=== PATIENT | male | born 1965 | race Caucasian/White ===

== ENCOUNTER 2016-09-17 17:18 | Emergency (ER) | payer OTHER ==
[2016-09-17 17:30] VITALS: BP 141/84; PULSE 88; TEMP 97.8; BMI 36.6
[2016-09-17] MEDS ORDERED: KETOROLAC TROMETHAMINE 60 MG/2 ML VIAL IM ONE (17:49)
[2016-09-17] MEDS ORDERED: KETOROLAC TROMETHAMINE 60 MG/2 ML VIAL ONE (17:52)
--- NOTE | 2016-09-17 18:04 | PDOC ---
History of Present Illness - General Chief Complaint: Back Pain Stated Complaint: BACK PAIN Time Seen by Provider: 09/17/16 17:33 History Source: Patient Exam Limitations: No Limitations - History of Present Illness Initial Comments: 09/17/16 17:58 50 yr male with c/o low back spasm started this AM . Pt states he was painting yesterday bent down. Pt has chronic pain. Pt denies urine or bowel dysfunction, denies saddle anesthesia. Occurred: reports: this morning Severity: reports: moderate Pain Location: reports: back Loss of Consciousness: no loss of consciousness Associated Symptoms (Fall): denies symptoms Past History - Past Medical History Allergies/Adverse Reactions: Allergies Allergy/AdvReac Type Severity Reaction Status Date / Time No Known Allergies Allergy Verified 09/17/16 17:26 Home Medications: Ambulatory Orders Codeine/Butalbital/ASA/Caffein [Fiorinal with Codeine #3 Cap] 1 each PO DAILY Cyclobenzaprine HCl [Flexeril 10 mg] 5 mg PO TID PRN #15 tablet 09/17/16 Naproxen Sodium [Naproxen Sodium Cr] 500 mg PO DAILY 09/17/16 Naproxen [Naprosyn -] 500 mg PO BID #14 tablet 09/17/16 Omeprazole Magnesium [Prilosec] 20 mg PO DAILY 09/17/16 Other medical history: back problems - Psycho/Social/Smoking Cessation Hx Anxiety: No Suicidal Ideation: No Smoking History: Never smoked Have you smoked in the past 12 months: No Information on smoking cessation initiated: No Hx Alcohol Use: No Drug/Substance Use Hx: No Substance Use Type: None Trauma Specific PMHX - Complaint Specific PMHX Arthritis: No Back Injury: Yes Neck Injury: Yes Review of Systems - Review of Systems Able to Perform ROS?: Yes Is the patient limited Icelandic proficient: No Constitutional: No: Symptoms Reported HEENTM: No: Symptoms Reported Respiratory: No: Symptoms reported Cardiac (ROS): No: Symptoms Reported ABD/GI: No: Symptoms Reported : No: Symptoms Reported Musculoskeletal: Yes: See HPI *Physical Exam - Vital Signs Last Vital Signs Temp Pulse Resp BP Pulse Ox 97.8 F 88 18 141/84 100 09/17/16 17:26 09/17/16 17:26 09/17/16 17:26 09/17/16 17:26 09/17/16 17:26 - Physical Exam General Appearance: Yes: Nourished, Appropriately Dressed HEENT: positive: EOMI, [place] Neck: negative: Tender Respiratory/Chest: positive: Lungs Clear, Normal Breath Sounds Cardiovascular: positive: Regular Rhythm, Regular Rate Musculoskeletal: positive: Normal Inspection, Decreased Range of Motion, Muscle Spasm. negative: CVA Tenderness, CVA Tenderness (R), CVA Tenderness (L), Vertebral Tenderness Extremity: positive: Normal Capillary Refill, Normal Inspection, Normal Range of Motion Integumentary: positive: Normal Color, Dry, Warm Neurologic: positive: Fully Oriented, Alert, Normal Mood/Affect, Normal Response , Motor Strength 07/15 ED Treatment Course - Medications Given in the ED: ED Medications Discontinued Medications Generic Name Dose Route Start Last Admin Trade Name Freq PRN Reason Stop Dose Admin Ketorolac Tromethamine 60 mg 09/17/16 17:49 09/17/16 17:53 Toradol Injection - IM 09/17/16 17:50 60 mg ONCE ONE Administration Medical Decision Making - Medical Decision Making 09/17/16 18:01 cc: low back pain/spasm after painting, pt has chronic back pain, herniated discs, neck herniated discs will give toradol for pain will dc with flexeril for spasms as needed, naprosyn for pain follow up with your back doctor next week. pt ambulatory is able to get self dressed no diffucuclty. pt agrees with plan of care. all questions asked at discharge. 09/17/16 18:56 *DC/Admit/Observation/Transfer Diagnosis at time of Disposition: Back muscle spasm - Discharge Dispostion Disposition: HOME Condition at time of disposition: Good - Prescriptions Prescriptions: Cyclobenzaprine HCl [Flexeril 10 mg] 5 mg PO TID PRN #15 tablet PRN Reason: Muscle Spasms Naproxen [Naprosyn -] 500 mg PO BID #14 tablet - Referrals Referrals: Marek Dela Cruz MD [Primary Care Provider] - Bobo Seals MD [Staff Physician] - - Patient Instructions Additional Instructions: please follow with the orthopedist next week take the flexeril for muscle spasm as needed MAY MAKE YOU DROWSY OR SLEEPY DO NOT DRIVE OR DRINK ALCOHOL TAKE NAPROSYN FOR PAIN any diffucuclty urinating, having bowel movements or ay other severe pain return to the ER
== END 2016-09-17 18:14 | disposition home or self-care (01) ==
LOC: JERFT 17:18
PROC: 3E0233Z Introduction of Anti-inflammatory into Muscle, Percutaneous Approach (ICD-10-PCS; principal; 2016-09-17)
DX: M62.830 Muscle spasm of back (principal); X50.0XXA Overexertion from strenuous movement or load, initial encounter; Y93.E9 Activity, other interior property and clothing maintenance; Y92.038 Other place in apartment as the place of occurrence of the external cause
CPT/HCPCS: 99281-25

== ENCOUNTER 2017-12-31 07:17 | Emergency (ER) | payer OTHER ==
[2017-12-31 07:29] VITALS: BP 128/100; PULSE 93; TEMP 97.5; BMI 27.0
[2017-12-31] MEDS ORDERED: MECLIZINE HCL 25 MG TABLET (FP) PO ONE (07:41)
--- NOTE | 2017-12-31 07:41 | PDOC ---
History of Present Illness - General Chief Complaint: Lightheaded Stated Complaint: dizzy,ear congested Time Seen by Provider: 12/31/17 07:38 History Source: Patient Exam Limitations: No Limitations - History of Present Illness Initial Comments: 12/31/17 07:38 52 yo male here with c/o vertigo sensation. was recently treated for inner ear infection has had cold with runny nose, sinus congestion and ear fullness. follows with dr. tidwell. last evening started to have vertigo. lasted several minutes. was feeling unsteady at time. has since improved., but recurrs with movement and rolling over in bed. no n/v no change to vision. no weakness or change to speech. no f/c no other complaints. Past History - Past Medical History Allergies/Adverse Reactions: Allergies Allergy/AdvReac Type Severity Reaction Status Date / Time No Known Allergies Allergy Verified 09/17/16 17:26 Home Medications: Ambulatory Orders Codeine/Butalbital/ASA/Caffein [Fiorinal with Codeine #3 Cap] 1 each PO DAILY Cyclobenzaprine HCl [Flexeril 10 mg] 5 mg PO TID PRN #15 tablet 09/17/16 Naproxen [Naprosyn -] 500 mg PO BID #14 tablet 09/17/16 Omeprazole Magnesium [Prilosec] 20 mg PO DAILY 09/17/16 Amoxicillin/Potassium Clav [Augmentin 875-125 Tablet] 1 each PO BID #14 tablet 12/31/17 Fluticasone Prop 0.05% Nasal [Flonase -] 1 spray NS DAILY #1 bot 12/31/17 Meclizine HCl 25 mg PO QID PRN #20 tablet 12/31/17 Pseudoephedrine HCl 30 mg PO QID PRN #30 tablet MDD 4 12/31/17 Tramadol HCl 50 mg PO TID PRN 12/31/17 Tramadol HCl 50 mg PO TID PRN 12/31/17 COPD: No Other medical history: back,knee,neck pain - Suicide/Smoking/Psychosocial Hx Smoking History: Never smoked Have you smoked in the past 12 months: No Information on smoking cessation initiated: No Hx Alcohol Use: No Drug/Substance Use Hx: No Substance Use Type: None Review of Systems - Review of Systems Constitutional: No: Chills, Diaphoresis, Fever HEENTM: Yes: Nose Congestion Respiratory: No: Orthopnea, Shortness of Breath Musculoskeletal: No: Back Pain, Gout, Joint Pain Neurological: No: Headache, Numbness, Paresthesia All Other Systems: Reviewed and Negative *Physical Exam - Vital Signs Last Vital Signs Temp Pulse Resp BP Pulse Ox 97.5 F L 93 H 20 128/100 98 12/31/17 07:18 12/31/17 07:18 12/31/17 07:18 12/31/17 07:18 12/31/17 07:18 - Physical Exam General Appearance: No: Appropriately Dressed, Apparent Distress HEENT: positive: Nasal Congestion Neck: negative: Trachea midline, Normal Thyroid Respiratory/Chest: positive: Lungs Clear, Normal Breath Sounds Cardiovascular: positive: Regular Rhythm, Regular Rate, S1, S2 Gastrointestinal/Abdominal: positive: Flat. negative: Tender Neurologic: positive: maitre d II-XII NML intact, Fully Oriented, Alert, Normal Mood/ Affect, Finger to Nose, Other (gait normal. positive vernon hallpike, normal gait. alt hand movement normal.) Medical Decision Making - Medical Decision Making 12/31/17 07:40 pt with posiotional vertigo. tm full fluid, and left ear occluded with cerumen. plan cerumen disimpaction. meclzine, labs, ivf. reassess. 12/31/17 08:33 left TM occluded with wax. cerumen disimpaction TM with cloudy effusion behind tm. right ear with clear tm. plan flonase, meclizine, psuedoephedrine. ENT followup *DC/Admit/Observation/Transfer Diagnosis at time of Disposition: Positional vertigo, Otitis, Sinusitis, Cerumen impaction - Discharge Dispostion Disposition: HOME Condition at time of disposition: Improved - Prescriptions Prescriptions: Amoxicillin/Potassium Clav [Augmentin 875-125 Tablet] 1 each PO BID #14 tablet Fluticasone Prop 0.05% Nasal [Flonase -] 1 spray NS DAILY #1 bot Meclizine HCl 25 mg PO QID PRN #20 tablet PRN Reason: Vertigo Pseudoephedrine HCl 30 mg PO QID PRN #30 tablet MDD 4 PRN Reason: Nasal Congestion - Referrals - Patient Instructions Printed Discharge Instructions: Benign Paroxysmal Positional Vertigo, Ear Infections (Middle Ear) (Alternative Therapy) Additional Instructions: take augmentin 875 twice daily x one week for your ear infection. you should use flonase nasal spray one spray each day to help with sinus pressure and congestion. you can take psuedoephedrine 30 mg every 6 hrs as needed for congestion. for the dizziness take meclizine 25 gm every 6 hrs. follow up with your ENT doctor, Dr Amezcua call to schedule. - Post Discharge Activity
[2017-12-31] MEDS ORDERED: MECLIZINE HCL 25 MG TABLET (FP) ONE (08:06)
== END 2017-12-31 08:44 | disposition home or self-care (01) ==
LOC: FER 07:17
DX: H61.20 Impacted cerumen, unspecified ear (principal); J32.9 Chronic sinusitis, unspecified; H66.90 Otitis media, unspecified, unspecified ear; H81.10 Benign paroxysmal vertigo, unspecified ear
CPT/HCPCS: 99281-25